=== PATIENT | female | born 1935 | race Two or more races ===

== ENCOUNTER 2019-12-02 21:48 | Inpatient (IN) | payer MEDICARE, MEDICAID ==
[~2019-12-02] VITALS: Ht 157.5 cm; Wt 48.1 kg
[2019-12-02] MEDS ORDERED: SODIUM CHLORIDE 0.9% 1,000 ML IV ONE (22:46)
[2019-12-02 22:57] LABS: BASOPHILS % 0.5 % (0.0-2.0); EOSINOPHILS % 1.1 % (0.0-5.0); HEMATOCRIT. 30.9 % (36.0-48.0); HEMOGLOBIN. 10.8 g/dL (12.0-16.0); MEAN CORPUSCULAR HEMOGLOBIN 33.2 pg (28.0-32.0); MEAN CORPUSCULAR VOLUME 94.5 fL (81.0-99.0); MEAN PLATELET VOLUME 8.5 fl (7.4-10.4); MONOCYTES % 8.4 % (2.0-8.0); PLATELET 196 x1000/uL (130-400); RED BLOOD CELL COUNT 3.26 mill/uL (4.2-5.4); RED CELL DISTRIBUTION WIDTH 13.6 % (11.6-14.6)
[2019-12-02 23:00] LABS: CHLORIDE 107 mEq/L (98-107)
[2019-12-03 08:00] VITALS: BP 147/61
[2019-12-03] MEDS ORDERED: SIMV-46 MT (09:41)
[2019-12-03] MEDS ORDERED: DICY20TA11 MT (09:41)
[2019-12-03] MEDS ORDERED: MECL-159 PO (09:41)
[2019-12-03] MEDS ORDERED: DULO30CA52 MT (09:41)
[2019-12-03 10:00] VITALS: BP 147/61
[2019-12-03] MEDS ORDERED: LEVOFLOXACIN 500MG PREMIX 100 ML IV SCH ×2 (11:45→14:00)
[2019-12-03] MEDS ORDERED: MORPHINE SULFATE 2 MG/ML CPJ (NOT FOR IM USE) IV PRN (11:45)
[2019-12-03] MEDS ORDERED: HYDROCODONE/ACETAMINOPHEN 5/325MG TABLET PO PRN (11:45)
[2019-12-03] MEDS ORDERED: MAGNESIUM/ALUMINUM HYDROXIDE/SIMETHICONE 30ML UDC PO PRN (11:45)
[2019-12-03] MEDS ORDERED: DIPHENHYDRAMINE 50MG/ML VIAL IV PRN (11:45)
[2019-12-03] MEDS ORDERED: IPRATROPIUM/ALBUTEROL 0.5-3(2.5)MG/3ML NEB NEB PRN (11:45)
[2019-12-03] MEDS ORDERED: ONDANSETRON HCL 4MG/2ML INJ IV PRN (11:45)
[2019-12-03] MEDS ORDERED: HYDRALAZINE 20MG/ML VIAL IV PRN (11:45)
[2019-12-03] MEDS ORDERED: NA PHOS,M-B/NA PHOS,DI-BA ENEMA 118ML PR PRN (11:45)
[2019-12-03] MEDS ORDERED: GUAIFENESIN 200MG/10ML SUGAR FREE UDC PO PRN (11:45)
[2019-12-03] MEDS ORDERED: LORAZEPAM 0.5MG TABLET PO PRN (11:45)
[2019-12-03] MEDS ORDERED: DOCUSATE SODIUM 100MG CAPSULE PO PRN (11:45)
[2019-12-03 12:00] VITALS: BP 138/49
[2019-12-03] MEDS ORDERED: ENOXAPARIN 30MG/0.3ML SYR SUBCUT SCH (12:00)
[2019-12-03] MEDS ORDERED: HYDRALAZINE 10 MG in SODIUM CHLORIDE 0.9% 49.5 ML IV PRN (12:15)
[2019-12-03] MEDS ORDERED: LISI10TA5 MT (12:28)
[2019-12-03] MEDS: DEXT 5%/0.45% NACL 1000ML 1,000 ML IV SCH (12:33)
[2019-12-03 12:50] LABS: BASOPHILS % 0.5 % (0.0-2.0); EOSINOPHILS % 2.2 % (0.0-5.0); HEMATOCRIT. 31.6 % (36.0-48.0); HEMOGLOBIN. 10.9 g/dL (12.0-16.0); LYMPHOCYTES % 23.8 % (20.0-50.0); MEAN CORPUSCULAR HEMOGLOBIN 32.6 pg (28.0-32.0); MEAN CORPUSCULAR VOLUME 94.3 fL (81.0-99.0); MEAN PLATELET VOLUME 8.1 fl (7.4-10.4); MONOCYTES % 7.8 % (2.0-8.0); NEUTROPHILS % 65.7 % (40.0-76.0); PLATELET 211 x1000/uL (130-400); RED BLOOD CELL COUNT 3.35 mill/uL (4.2-5.4); RED CELL DISTRIBUTION WIDTH 13.9 % (11.6-14.6)
[2019-12-03] MEDS ORDERED: GABA-529 MT (12:56)
[2019-12-03 12:57] LABS: PROTHROMBIN TIME 10.7 sec (9.6-11.0)
[2019-12-03] MEDS ORDERED: METRONIDAZOLE 500MG TABLET PO SCH (14:00)
[2019-12-03] MEDS: AMLODIPINE 2.5MG TABLET PO SCH ×2 (15:35→22:00)
[2019-12-03 16:00] VITALS: BP 125/41
[2019-12-03 17:43] LABS: CHLORIDE 109 mEq/L (98-107)
[2019-12-03 17:51] LABS: LDL CHOLESTEROL 69 mg/dL (5-100)
[2019-12-03 17:52] LABS: TOTAL IRON BINDING CAPACITY 193 ug/dL (250-450)
[2019-12-03 17:53] LABS: HDL CHOLESTEROL 46 mg/dL (40-59)
[2019-12-03] MEDS ORDERED: POTASSIUM CHLORIDE 20MEQ TABLET SR PO ONE (18:00)
[2019-12-03] MEDS: PANTOPRAZOLE SODIUM 40 MG/VIAL IV SCH (18:31)
[2019-12-03 18:58] LABS: CLARITY URINE CLEAR (CLEAR); COLOR URINE YELLOW (YELLOW); KETONES URINE NEGATIVE (NEGATIVE); LEUKOCYTE ESTERASE URINE 2+ (NEGATIVE); NITRITE URINE NEGATIVE (NEGATIVE); OCCULT BLOOD URINE NEGATIVE (NEGATIVE); PH URINE 6.5 (4.5-8.0); PROTEIN URINE NEGATIVE (NEGATIVE); SPECIFIC GRAVITY URINE 1.008 (1.005-1.030); UROBILINOGEN URINE 0.2 E.U./dL (0.2-1.0)
[2019-12-03 19:12] LABS: *AMPHETAMINES SCREEN URINE NEGATIVE (NEGATIVE); *BARBITURATES SCREEN URINE NEGATIVE (NEGATIVE); *BENZODIAZEPINES SCREEN URINE NEGATIVE (NEGATIVE); *COCAINE SCREEN URINE NEGATIVE (NEGATIVE)
[2019-12-03 19:13] LABS: CANNABINOID URINE SCREEN NEGATIVE (NEGATIVE); METHADONE URINE SCREEN NEGATIVE (NEGATIVE); OPIATES URINE SCREEN NEGATIVE (NEGATIVE); PHENCYCLIDINE URINE SCREEN NEGATIVE (NEGATIVE)
[2019-12-03 20:00] VITALS: BP 118/51
[2019-12-03] MEDS ORDERED: CALC1CAP22 MT (20:04)
[2019-12-03] MEDS ORDERED: HYDR-4001 MT (20:04)
[2019-12-03] MEDS ORDERED: LISI-186 MT (20:04)
[2019-12-03] MEDS ORDERED: GABA-531 MT (20:04)
[2019-12-03] MEDS ORDERED: PANT40TA4 MT (20:04)
[2019-12-03] MEDS ORDERED: ATORVASTATIN CALCIUM 40MG TABLET PO SCH (21:00)
[2019-12-03] MEDS ORDERED: FAMOTIDINE 20MG TABLET PO SCH (21:00)
[2019-12-03 22:11] LABS: BG BASE EXCESS 0.1 mmol/L (-2.0-2.0); BG CARBOXYHEMOGLOBIN 0.3 % (0.5-1.5); BG DEOXYHEMOGLOBIN 4.7 % (0.0-5.0); BG FRACTION INSPIRED OXYGEN 21; BG HCO3 ACT 24.1 mmol/L (22.0-26.0); BG METHEMOGLOBIN 0.5 % (0.0-1.5); BG OXYGEN SATURATION 95.3 % (92.0-98.5); BG OXYHEMOGLOBIN 94.5 % (94.0-97.0); BG PCO2 36.8 mmHg (35.0-45.0); BG PH 7.434 (7.350-7.450); BG PO2 81.3 mmHg (75.0-100.0); BG SAMPLE SITE RIGHT RADIAL; BG TOTAL HEMOGLOBIN 10.8 g/dL (12.0-18.0); BG VENT MODE ROOM AIR
[2019-12-04] VITALS: BP 124/72
[2019-12-04] MEDS: DEXT 5%/0.45% NACL 1000ML 1,000 ML IV SCH ×2 (01:18→14:40)
[2019-12-04 04:00] VITALS: BP 132/54
[2019-12-04 06:59] LABS: BASOPHILS % 0.9 % (0.0-2.0); EOSINOPHILS % 6.4 % (0.0-5.0); HEMATOCRIT. 32.3 % (36.0-48.0); HEMOGLOBIN. 11.1 g/dL (12.0-16.0); LYMPHOCYTES % 36.9 % (20.0-50.0); MEAN CORPUSCULAR HEMOGLOBIN 32.8 pg (28.0-32.0); MEAN CORPUSCULAR VOLUME 94.9 fL (81.0-99.0); MEAN PLATELET VOLUME 8.6 fl (7.4-10.4); MONOCYTES % 10.7 % (2.0-8.0); NEUTROPHILS % 45.1 % (40.0-76.0); PLATELET 204 x1000/uL (130-400)
[2019-12-04 07:09] LABS: CHLORIDE 113 mEq/L (98-107)
[2019-12-04 07:29] LABS: VITAMIN B12 SERUM 201 pg/mL (211-911)
[2019-12-04 07:34] LABS: LDL CHOLESTEROL 82 mg/dL (5-100)
[2019-12-04 07:36] LABS: TOTAL IRON BINDING CAPACITY 268 ug/dL (250-450)
[2019-12-04 07:37] LABS: HDL CHOLESTEROL 53 mg/dL (40-59)
[2019-12-04 07:38] LABS: T4 FREE 1.06 ng/dL (0.76-1.46)
[2019-12-04 08:00] VITALS: BP 129/52
[2019-12-04] MEDS: AMLODIPINE 2.5MG TABLET PO SCH (08:42)
[2019-12-04] MEDS: PANTOPRAZOLE SODIUM 40 MG/VIAL IV SCH ×2 (08:42→16:34)
[2019-12-04] MEDS ORDERED: LEVOFLOXACIN 250MG PREMIX 50 ML IV SCH (11:00)
[2019-12-04 12:00] VITALS: BP_SYST 117; BP_SYST 123; BP_SYST 126; BP_SYST 129; BP_DIAS 39; BP_DIAS 44; BP_DIAS 48; BP_DIAS 52
[2019-12-04] MEDS ORDERED: CYANOCOBALAMIN 100MCG TABLET PO SCH (12:00)
[2019-12-04] MEDS ORDERED: MINERAL OIL ENEMA 133ML PR NR (15:00)
[2019-12-04 16:00] VITALS: BP 129/52
[2019-12-04] MEDS ORDERED: LACTULOSE 20G/30ML UDC PO NR (16:08)
[2019-12-06 13:11] LABS: ATYPICAL pANCA <1:20 titer (Neg:<1:20); SACCHAROMYCES CEREVISIAE IGG <20.0 Units (0.0-24.9); SACCHAROMYCES CEREVISIAE IGM <20.0 Units (0.0-24.9)
== END 2019-12-04 19:00 | disposition home or self-care (01) | DRG 378 ==
LOC: ER 21:48 → 6EST 12-03 00:50 → EDBEDREQTM 12-03 00:53 → EDBEDREQ 12-03 00:53 → EDBEDREQDT 12-03 00:53 → ENRESERV 12-03 07:28 → 8WST 12-03 15:52
PROVIDERS: ADMIT Internal Medicine; ATTEND Internal Medicine
DX: K92.2 Gastrointestinal hemorrhage, unspecified (principal); G93.40 Encephalopathy, unspecified; E87.2 Acidosis; K62.89 Other specified diseases of anus and rectum; D49.0 Neoplasm of unspecified behavior of digestive system; E86.0 Dehydration; R53.1 Weakness; D64.9 Anemia, unspecified; R19.7 Diarrhea, unspecified; R73.9 Hyperglycemia, unspecified; R00.1 Bradycardia, unspecified; R51 Headache; E53.8 Deficiency of other specified B group vitamins; I12.9 Hypertensive chronic kidney disease with stage 1 through stage 4 chronic kidney disease, or unspecified chronic kidney disease; N18.9 Chronic kidney disease, unspecified; E83.52 Hypercalcemia; E78.5 Hyperlipidemia, unspecified; Z90.710 Acquired absence of both cervix and uterus
CPT/HCPCS: 36415; 36600; 71045; 74176; 80053; 80061; 80305; 81003; 82140; 82270; 82330; 82375; 82378; 82607; 82805; 83036; 83540; 83550; 83605; 83735; 83970; 84439; 84443; 84484; 85025; 85044; 86256; 86671; 93005; 93306; 93970; 97162; 99285; C9113; G0378; J1650; J1956; J2270; J7030